=== PATIENT | male | born 1990 | race African-American/Black ===

== ENCOUNTER 2021-03-14 01:57 | Emergency (ER) | payer SELFPAY ==
[~2021-03-14] VITALS: Ht 167.6 cm; Wt 68.0 kg
[2021-03-14] MEDS ORDERED: MORPHINE SULFATE 4 MG/ML CPJ (NOT FOR IM USE) IV STA (02:04)
[2021-03-14] MEDS ORDERED: ONDANSETRON HCL 4MG/2ML INJ IV STA (02:04)
[2021-03-14] MEDS ORDERED: SODIUM CHLORIDE 0.9% 1,000 ML IV ONE (02:15)
[2021-03-14] MEDS ORDERED: CEFAZOLIN 1000MG PREMIX 50 ML IV ONE (02:15)
[2021-03-14] MEDS ORDERED: TETANUS, DIPHTHERIA, PERTUSSIS VAC/PF 0.5ML (>10YR OLD) IM ONE (02:15)
[2021-03-14 02:27] LABS: BASOPHILS % 0.3 % (0.0-2.0); HEMATOCRIT. 44.3 % (42.0-52.0); HEMOGLOBIN. 15.1 g/dL (14.0-18.0); LYMPHOCYTES % 36.7 % (20.0-50.0); MEAN CORPUSCULAR HEMOGLOBIN 30.3 pg (28.0-32.0); MEAN CORPUSCULAR VOLUME 89.3 fL (80.0-94.0); MEAN PLATELET VOLUME 7.8 fl (7.4-10.4); MONOCYTES % 8.6 % (2.0-8.0); NEUTROPHILS % 53.4 % (40.0-76.0); PLATELET 240 x1000/uL (130-400); RED BLOOD CELL COUNT 4.97 mill/uL (4.7-6.1); RED CELL DISTRIBUTION WIDTH 13.7 % (11.6-14.6)
[2021-03-14 02:30] LABS: CHLORIDE 109 mEq/L (98-107)
[2021-03-14] MEDS ORDERED: IBUP-2029 MT (03:04)
[2021-03-14 05:57] VITALS: BP 132/90
== END 2021-03-14 06:12 | disposition home or self-care (01) ==
LOC: ER 01:57
DX: S02.2XXB Fracture of nasal bones, initial encounter for open fracture (principal); S01.81XA Laceration without foreign body of other part of head, initial encounter; F15.10 Other stimulant abuse, uncomplicated; Z88.6 Allergy status to analgesic agent; X93.XXXA Assault by handgun discharge, initial encounter; Y93.89 Activity, other specified; Y92.488 Other paved roadways as the place of occurrence of the external cause
CPT/HCPCS: 36415; 70450; 70486; 80053; 83690; 85025; 86850; 86900; 86901; 90471; 90715; 96365; 96375; 99284; J0690; J2270; J2405; J7030; Z7610

== ENCOUNTER 2021-06-05 21:00 | Emergency (ER) | payer MEDICAID ==
[~2021-06-05] VITALS: Ht 167.6 cm; Wt 71.0 kg
[~2021-06-05 21:00] MED LIST: IBUP-2029 MT
[2021-06-05 21:24] VITALS: BP 141/88
[2021-06-06] MEDS ORDERED: IBUPROFEN 600MG TABLET PO ONE (01:00)
[2021-06-06] MEDS ORDERED: CLOT15CR27 TP (01:08)
[2021-06-06] MEDS ORDERED: IBUP-2028 MT (01:08)
== END 2021-06-06 03:15 | disposition home or self-care (01) ==
LOC: ER 21:00
DX: B35.3 Tinea pedis (principal); M79.672 Pain in left foot; F17.210 Nicotine dependence, cigarettes, uncomplicated; Z88.6 Allergy status to analgesic agent
CPT/HCPCS: 73630; 99283

== ENCOUNTER 2023-06-18 04:22 | Emergency (ER) | payer MEDICAID ==
[~2023-06-18] VITALS: Ht 167.6 cm; Wt 81.0 kg
[~2023-06-18 04:22] MED LIST changes: +CLOT15CR27 TP; +IBUP-2028 MT
[2023-06-18 04:30] VITALS: TEMP 98.4; O2SAT 98
[2023-06-18] MEDS: MAGNESIUM/ALUMINUM HYDROXIDE/SIMETHICONE 30ML UDC PO STA (06:20)
[2023-06-18] MEDS: ONDANSETRON 4MG ODT PO STA (06:20)
[2023-06-18] MEDS: DICYCLOMINE 10 MG/5 ML ORAL SYR PO STA (06:20)
[2023-06-18 06:42] LABS: BASOPHILS % 0.3 % (0.0-2.0); EOSINOPHILS % 0.8 % (0.0-5.0); HEMATOCRIT. 45.2 % (42.0-52.0); HEMOGLOBIN. 15.7 g/dL (14.0-18.0); LYMPHOCYTES % 24.8 % (20.0-50.0); MEAN CORPUSCULAR HEMOGLOBIN 32.3 pg (28.0-32.0); MEAN CORPUSCULAR HGB CONC 34.7 g/dL (31.0-37.0); MEAN PLATELET VOLUME 7.9 fl (7.4-10.4); MONOCYTES % 9.7 % (2.0-8.0); NEUTROPHILS % 64.4 % (40.0-76.0); PLATELET 281 x1000/uL (130-400); RED BLOOD CELL COUNT 4.86 mill/uL (4.7-6.1); RED CELL DISTRIBUTION WIDTH 14.4 % (11.6-14.6); WHITE BLOOD COUNT 10.6 x1000/uL (4.5-11.0)
[2023-06-18 06:59] LABS: ALANINE AMINOTRANSFERASE 37 IU/L (10-49); ALBUMIN 4.9 g/dL (3.2-4.8); ASPARTATE AMINOTRANSFERASE 38 IU/L (<34); BILIRUBIN TOTAL 0.7 mg/dL (0.1-1.0); CALCIUM 9.2 mg/dL (8.7-10.4); CARBON DIOXIDE 28 mEq/L (21-32); CHLORIDE 106 mEq/L (98-107); GLUCOSE 100 mg/dL (70-105); POTASSIUM 3.8 mEq/L (3.5-5.1); PROTEIN TOTAL 8.2 g/dL (6.0-8.3); SODIUM 138 mEq/L (136-145); UREA NITROGEN BLOOD 14 mg/dL (9-23)
[2023-06-18] MEDS ORDERED: CEPH500C2 PO (07:22)
[2023-06-18] MEDS ORDERED: SULF1TAB47 PO (07:22)
[2023-06-18 07:52] VITALS: BP 127/79; PULSE 74; RESP 18
== END 2023-06-18 07:57 | disposition home or self-care (01) ==
LOC: ER 04:22
DX: L03.90 Cellulitis, unspecified (principal); R10.9 Unspecified abdominal pain; L73.9 Follicular disorder, unspecified; F12.10 Cannabis abuse, uncomplicated; F15.10 Other stimulant abuse, uncomplicated; Z88.6 Allergy status to analgesic agent
CPT/HCPCS: 99284; 80053; 83690; 85025; 36415; Q0162